=== PATIENT | male | born 1950 | race Caucasian/White ===

== ENCOUNTER → 2019-08-26 | Outpatient (CLI) | payer MEDICARE ==
[~2019-08-26] MED LIST: ASPIR-LOW81 MG PO; ASPIR-LOX325 MG PO; ASPIRIN E.C. 8181 MG PO; CEPHALEXIN500 M1 PO; CLOPIDOGREL; COENZYME Q-1010 MG PO; COLACE 100100 MG/CAP PO; FISH OIL1000 MG PO; FLEXERIL5 MG PO; FLOMAX 0.40.4 MG/CAP PO; GLUCOPHAGE XR500 M1 PO; IBUPROFEN400 MG PO; KLONOPIN 1MG1 MG PO; KLONOPIN WAFERS1 MG PO; LEVOTHROID0.125 MG PO; LOVAZA PO; LYRICA 75MG CAP75 MG PO; METFORMIN ER500 MG PO; NIASPAN 500MG500 MG PO; NIASPAN1000 MG PO; OXYCODONE10 MG PO; PERCOCET 325 MG1 TA2 PO; ROBAXIN 50500 MG/TAB PO; SYNTHROID0.125 MG/T PO; TOPROL XL50 MG PO; ULTRAM 50MG TAB50 MG PO; VITAMIN D1000 IU PO; VYTORIN; VYTORIN 10 MG-21 TAB PO; ZOFRAN 4MG T4 MG/TAB PO
== END ==
LOC: COL.RAD 09:45
DX: Z01.812 Encounter for preprocedural laboratory examination (principal); M48.062 Spinal stenosis, lumbar region with neurogenic claudication; M96.1 Postlaminectomy syndrome, not elsewhere classified; M51.16 Intervertebral disc disorders with radiculopathy, lumbar region; M51.17 Intervertebral disc disorders with radiculopathy, lumbosacral region; M48.07 Spinal stenosis, lumbosacral region; M48.061 Spinal stenosis, lumbar region without neurogenic claudication
CPT/HCPCS: A9585

== ENCOUNTER 2023-09-06 12:08 | Day surgery (SDC) | payer MEDICARE, OTHER ==
[~2023-09-06] VITALS: Ht 175.3 cm; Wt 92.6 kg
[~2023-09-06 12:08] MED LIST changes: -COENZYME Q-1010 MG PO; +COENZYME Q-1030 MG PO; +LR 1,000 ML IV SCH; -LYRICA 75MG CAP75 MG PO; +LYRICA225 MG PO; +MASON NATURAL2000 IU PO; -VITAMIN D1000 IU PO
[2023-09-06 12:43] VITALS: BP 135/55; PULSE 65; TEMP 97.8
[2023-09-06 12:50] LABS: HEMOGLOBIN 11.9 g/dl (13.5-18.0); MEAN CELL VOLUME 88 fl (80.0-100.0); MEAN CORPUSCULAR HEMOGLOBIN 29 pg (27-31); MEAN CORPUSCULAR HGB CONC 33 g/dl (33.0-37.0); MEAN PLATELET VOLUME 11.5 fl (7.4-10.4); PLATELET COUNT 122 K/mm3 (130-400); RED BLOOD COUNT 4.06 M/mm3 (4.20-5.60); REDCELL DISTRIBUTION WIDTH-CV 12.7 % (11.5-14.5)
[2023-09-06 12:51] LABS: HEMATOCRIT 35.6 % (42.0-52.0)
[2023-09-06 12:55] LABS: INR 1.1 (0.8-3.0); PROTHROMBIN TIME 11.7 SECONDS (9.7-12.8)
[2023-09-06 13:09] LABS: CALCIUM 9.6 mg/dL (8.4-10.2); CREATININE, serum 1.19 mg/dL (0.72-1.25); POTASSIUM 4.5 mEq/L (3.5-4.5)
[2023-09-06] MEDS ORDERED: NESINA25 PO (13:15)
[2023-09-06] MEDS ORDERED: CLEOCIN HC150 MG/CAP PO (13:16)
[2023-09-06] MEDS ORDERED: CYMBALTA 30MG30 MG PO (13:17)
[2023-09-06] MEDS ORDERED: PEPCID 20MG TAB20 MG PO (13:18)
[2023-09-06] MEDS ORDERED: MELATIN 3 MG-11 TAB PO (13:19)
[2023-09-06] MEDS ORDERED: MYRBETR50MG PO (13:26)
[2023-09-06] MEDS ORDERED: MACROBID 1100 MG/CAP PO (13:28)
[2023-09-06] MEDS ORDERED: EPA FISH OIL1 SGL PO (13:29)
[2023-09-06] MEDS ORDERED: MINIPRESS 1M1 MG/CAP PO (13:30)
[2023-09-06] MEDS ORDERED: FLOMAX 0.40.4 MG/CAP PO (13:31)
[2023-09-06] MEDS ORDERED: TYLENOL 500MG500 MG PO (13:33)
[2023-09-06] MEDS ORDERED: ZOVIRAX400 MG PO (13:33)
[2023-09-06] MEDS ORDERED: LEADER CLE17 GM/Dose PO (13:35)
[2023-09-06] MEDS ORDERED: NEURONTIN100 MG/CAP PO ×2 (13:37)
[2023-09-06] MEDS ORDERED: JANUVIA 100MG100 MG PO (13:42)
[2023-09-06] MEDS ORDERED: ALDACTONE 25MG25 M1 PO (14:28)
[2023-09-06 14:39] VITALS: BP 107/56; PULSE 65
[2023-09-06 14:45] VITALS: BP 138/63; PULSE 67
[2023-09-06 15:00] VITALS: BP 133/59; PULSE 68
[2023-09-06 15:15] VITALS: BP 138/63; PULSE 65
[2023-09-06 15:25] VITALS: BP 132/59; PULSE 63
--- NOTE | 2023-09-06 15:43 | NUR ---
Pt ambulated with a stady gait using a cane to EU12, accompanied by . Pt was scheduled for a YNES. EKG done. IV started, labs drawn. Consent for the procedure signed. Post procedure the pt was given a water. Offered the pt a snack, they declined. Pt recovered with us for about 1 hr. Discharge education and information was discussed with the pt. No questions at this time. Pt exited the unit by wheelchair accompanied by this nurse to wifes car.
== END 2023-09-06 15:32 | disposition home or self-care (01) ==
LOC: COL.CAR 12:08
PROVIDERS: Internal Medicine Cardiovascular Disease
DX: I08.0 Rheumatic disorders of both mitral and aortic valves (principal); K21.9 Gastro-esophageal reflux disease without esophagitis; Z95.818 Presence of other cardiac implants and grafts; Z95.2 Presence of prosthetic heart valve
CPT/HCPCS: J7120